=== PATIENT | female | born 1995 | race Caucasian/White ===

== ENCOUNTER 2018-08-10 15:55 | Emergency (ER) | payer OTHER, SELFPAY ==
[2018-08-10 15:56] VITALS: BP 102/68; PULSE 86; RESP 16; TEMP 36.7; O2SAT 99; BMI 23.5
[2018-08-10] MEDS: DiphenhydrAMINE 50 MG/ML Syringe 25 MG IV (16:19)
[2018-08-10] MEDS: Metoclopramide 10 MG/2 ML Vial IV (16:19)
[2018-08-10 16:42] LABS: Anion Gap 6 (5-15); BUN 8 mg/dL (7-18); BUN/Creat Ratio 12.3 RATIO (10-20); Calcium,Total 8.8 mg/dL (8.5-10.1); Chloride 104 mmol/L (98-107); Creatinine, Serum 0.65 mg/dL (0.55-1.02); EST Glomerular Filtration Rate 118 mL/min (>60); Est Glom Filt Rate - Afr Amer 143 mL/min (>60); Estimated Creatinine Clearance 119.05 ml/min; Glucose 78 mg/dL (74-106); Potassium 3.5 mmol/L (3.5-5.1); Sodium Level 135 mmol/L (136-145)
[2018-08-10 16:53] LABS: Absolute Lymphocyte Count 1.93 X10^3/ul (0.83-4.51); Basophil# 0.02 X10^3/uL; Basophil% 0.2 % (0-1); Eosinophil# 0.06 X10^3/uL; Eosinophils% 0.5 % (0-5); Hematocrit 40.7 % (37-47); Hemoglobin 14.1 g/dl (12.0-15.0); Lymphocyte # 1.93 X10^3/ul (4.0); Mean Corp Hgb Conc 34.6 g/gl (32-36); Mean Corpuscular Hgb 29.1 pg (27.0-32.0); Mean Corpuscular Volume 83.9 fL (81-99); Monocyte# 1.04 X10^3/uL; Monocyte% 8.6 % (0-10); Neutrophil % 74.5 % (47-70); Platelet Count 224 K/mm3 (150-450); RBC Distribution Width CV 13.4 % (11.6-14.6); RBC Distribution Width SD 40.4 fl (35.1-43.9); Red Blood Count 4.85 M/mm3 (4.2-5.4); White Blood Count 12.1 K/mm3 (4.4-11.0)
[2018-08-10 16:54] LABS: POSITIVE COUNT NO; POSITIVE DIFFERENTIAL NO; POSITIVE MORPHOLOGY NO
[2018-08-10 18:21] LABS: Mucous, Urine 0 SEEN /hpf (<or=2+); Red Blood Cells-Urine 0 SEEN /hpf (0-5)
[2018-08-10 18:22] LABS: Color, Urine Yellow (Yellow); Glucose, Dipstick Normal (Normal); Leukocyte Esterase-Dipstick Negative /ul (Negative); Nitrite-Dipstick Negative (Negative); Occult Blood-Urine Negative /ul (Negative); Protein-Dipstick Negative (Negative); Specific Gravity, Urine 1.025 (1.002-1.030); Urine Bilirubin Dipstick Negative (Negative); Urine Clarity Sl. Cloudy (Clear); Urine Urobilinogen Normal (Normal)
[2018-08-10 18:33] LABS: Ketone-Dipstick 150 mg/dl (Negative)
[2018-08-10 18:49] LABS: Bacteria RARE /hpf (None Seen); Squamous Epithelial Cells - UA 0-5 SEEN /hpf (5-10); White Blood Cells 0-5 SEEN /hpf (0-5)
--- NOTE | 2018-08-10 19:01 | ED.VISSUMM ---
- ER Visit Summary Date of Service: 08/10/18 Chief Complaint: [Vomiting] History of Present Illness: The patient is a 23 F [presents to the emergency department with complaint of vomiting that started since she found out she was . Patient is 15 weeks and she is G2, P1. Patient states that with her first she had hyperemesis throughout the entire . Patient is currently on Diclegis however it does not seem to be helping her symptoms at all. Patient states that she is attempted to avoid other antiemetics due to the concern for risk to the baby. Patient states that every time she tries to eat or drink she becomes extremely nauseated and vomits. She denies any fevers. She denies urinary symptoms. She is had some mild abdominal discomfort and discomfort in her back related to all the retching and vomiting.] Physical Examination: [HEENT-PERRLA, EOMI. Cranial nerves II through XII grossly intact. TMs clear. Mucous membranes moist. No adenopathy. Cardiovascular-regular rate and rhythm without murmur or ectopy Lungs-clear to auscultation, chest wall stable without crepitus or subcu emphysema Abdomen-normoactive bowel sounds, soft. Patient has some mild diffuse tenderness on exam. There is no rebound, rigidity, or perineal signs. Extremities-intact ?4, normal range of motion, normal pulses, atraumatic] Test Results: [CBC with differential obtained showing a 12.1, hemoglobin 14, hematocrit 41, platelets 224. Chemistries unremarkable. Urinalysis was unremarkable other than ketones 150. heart tones were 155.] Emergency Department Course and Treatment: [Patient was given a liter normal same fluid bolus. Patient was agreeable to antiemetics today and she received Reglan 10 mg IV as well as Benadryl 25 mill grams IV. Patient had no further vomiting and was able to tolerate p.o. fluids.] Treatment Plan: [I had a long discussion with patient regarding antiemetics and . She understands that there are some concern with antiemetics specifically Zofran in the first trimester related to organogenesis and cleft lip and palate however the FDA has not withdrawn this medication and it is unclear exactly what the length may be. Patient at this time is willing to take the Zofran being that she is in her second trimester. Patient advised to follow-up with her TURRET LATHE MACHINIST within next 3 to 5 days] Disposition: Discharged home in stable condition [] Impression: [Hyperemesis gravidarum] This note was generated with [employer] dictation software. It may contain incorrect words, spelling, and punctuation that were not noted in review of the chart prior to signing ED Disposition - Plan for ED Patient: Referrals: Asif Luna MD [Primary Care Provider] -
--- NOTE | 2018-08-10 19:04 | ED.DCSUM_ITS ---
- ER Visit Summary Date of Service: 08/10/18 Chief Complaint: [Vomiting] History of Present Illness: The patient is a 23 F [presents to the emergency department with complaint of vomiting that started since she found out she was . Patient is 15 weeks and she is G2, P1. Patient states that with her first she had hyperemesis throughout the entire . Patient is currently on Diclegis however it does not seem to be helping her symptoms at all. Patient states that she is attempted to avoid other antiemetics due to the concern for risk to the baby. Patient states that every time she tries to eat or drink she becomes extremely nauseated and vomits. She denies any fevers. She denies urinary symptoms. She is had some mild abdominal discomfort and discomfort in her back related to all the retching and vomiting.] Physical Examination: [HEENT-PERRLA, EOMI. Cranial nerves II through XII grossly intact. TMs clear. Mucous membranes moist. No adenopathy. Cardiovascular-regular rate and rhythm without murmur or ectopy Lungs-clear to auscultation, chest wall stable without crepitus or subcu emphysema Abdomen-normoactive bowel sounds, soft. Patient has some mild diffuse tenderness on exam. There is no rebound, rigidity, or perineal signs. Extremities-intact ?4, normal range of motion, normal pulses, atraumatic] Test Results: [CBC with differential obtained showing a 12.1, hemoglobin 14, hematocrit 41, platelets 224. Chemistries unremarkable. Urinalysis was unremarkable other than ketones 150. heart tones were 155.] Emergency Department Course and Treatment: [Patient was given a liter normal same fluid bolus. Patient was agreeable to antiemetics today and she received Reglan 10 mg IV as well as Benadryl 25 mill grams IV. Patient had no further vomiting and was able to tolerate p.o. fluids.] Treatment Plan: [I had a long discussion with patient regarding antiemetics and . She understands that there are some concern with antiemetics specifically Zofran in the first trimester related to organogenesis and cleft lip and palate however the FDA has not withdrawn this medication and it is unclear exactly what the length may be. Patient at this time is willing to take the Zofran being that she is in her second trimester. Patient advised to follow-up with her ELECTRIC SERVICEMAN within next 3 to 5 days] Disposition: Discharged home in stable condition [] Impression: [Hyperemesis gravidarum] This note was generated with [employer] dictation software. It may contain incorrect words, spelling, and punctuation that were not noted in review of the chart prior to signing ED Disposition - Plan for ED Patient: Referrals: Asif Luna MD [Primary Care Provider] -
--- NOTE | 2018-08-10 19:06 | DCINST.ED_ITS ---
ED Disposition - Plan for ED Patient: Instructions: Severe Morning Sickness (Hyperemesis Gravidarum) Prescriptions: Ondansetron [Zofran Odt] 4 mg PO Q8H PRN PRN #14 tab PRN Reason: Nausea/Emesis Referrals: Asif Luna MD [Primary Care Provider] - Additional Instructions: See your OFF TRACK BETTING MANAGER in 3-5 days
[2018-08-10 19:12] VITALS: BP 100/78; PULSE 87; RESP 17; O2SAT 99
== END 2018-08-10 19:14 | disposition home or self-care (01) ==
PROVIDERS: Emergency Provider Emergency Medicine; Family Provider Family Medicine; PCP Family Medicine
DX: O21.0 Mild hyperemesis gravidarum (principal); Z3A.15 15 weeks gestation of pregnancy
CPT/HCPCS: 80048; 81001; 85025; 96374; 96375; 99285; J7030; A4216